=== PATIENT | female | born 1965 | race African-American/Black ===

== ENCOUNTER 2016-12-16 09:52 | Inpatient (IN) | payer MEDICAID ==
[~2016-12-16] VITALS: Ht 170.2 cm; Wt 79.9 kg
[~2016-12-16 09:52] MED LIST: BENZ100C PO; FAMO20TA7 PO; FOLI-17 PO; LEVO500T8 PO; LORA-446 PO; MULT-750 PO; ONDA4TAB10 PO; OXYC5TAB3 PO; SODI650T PO; SUCR1ORA2 PO; THIA100T10 PO; THIA100T6 PO; THIA50TA2 PO
[2016-12-16] MEDS ORDERED: SODIUM CHLORIDE FLUSH 10ML SYR IVF ONE (11:00)
[2016-12-16] MEDS ORDERED: SODIUM CHLORIDE 0.9% 1,000ML IVBOLUS ONE (11:00)
[2016-12-16] MEDS ORDERED: ONDANSETRON 2MG/ML, 2ML IVPush ONE (11:00)
[2016-12-16] MEDS ORDERED: MORPHINE SULFATE 4 MG/ML, 1ML IVPush PRN (11:00)
[2016-12-16] MEDS ORDERED: IBUPROFEN 200 MG TABLET PO ONE (11:00)
[2016-12-16] MEDS ORDERED: MORPHINE SULFATE 4 MG/ML, 1ML ONE (11:02)
[2016-12-16] MEDS ORDERED: ONDANSETRON 2MG/ML, 2ML ONE (11:03)
[2016-12-16] MEDS ORDERED: IBUPROFEN 200 MG TABLET ONE (11:03)
[2016-12-16 11:30] LABS: BLOOD UREA NITROGEN 11 mg/dL (7-18)
[2016-12-16 11:38] LABS: ASPARTATE AMINO TRANSFERASE 362 U/L (15-37)
[2016-12-16] MEDS ORDERED: LORazepam 2 MG/ML, 1ML ONE (12:40)
[2016-12-16] MEDS ORDERED: LORazepam 2 MG/ML, 1ML IVPush ONE (13:00)
[2016-12-16] MEDS ORDERED: CEFTRIAXONE PMX 1GM/50ML 50 ML IV ONE (13:30)
[2016-12-16] MEDS ORDERED: CEFTRIAXONE PMX 1GM/50ML 50 ML ONE (13:36)
[2016-12-16 14:57] VITALS: BP 118/79
[2016-12-16] MEDS: CEFTRIAXONE PMX 1GM/50ML 50 ML IV SCH (15:30)
[2016-12-16] MEDS ORDERED: ACETAMINOPHEN 325 MG TABLET PO PRN (15:30)
[2016-12-16] MEDS ORDERED: LABETALOL 5MG/ML, 20ML IV PRN (15:30)
[2016-12-16] MEDS ORDERED: ONDANSETRON 2MG/ML, 2ML IVP PRN (15:30)
[2016-12-16] MEDS ORDERED: DOCUSATE 100 MG CAPSULE PO PRN (15:30)
[2016-12-16] MEDS ORDERED: POLYETHYLENE GLYCOL 17 GM PACKET PO PRN (15:30)
[2016-12-16] MEDS ORDERED: BISACODYL 10 MG SUPP PR PRN (15:30)
[2016-12-16] MEDS: LORazepam 2 MG/ML, 1ML IVPush PRN ×2 (16:01→20:15)
[2016-12-16] MEDS: HYDROcodone/APAP 5/325 TABLET PO PRN ×2 (16:01→20:15)
[2016-12-16] MEDS: SODIUM CHLORIDE 0.9% 1,000 ML IV SCH (17:55)
[2016-12-16] MEDS: HEPARIN 5,000 UNITS/ML, 1ML SQ SCH (17:55)
[2016-12-16 19:05] VITALS: BP 114/78
[2016-12-17 01:55] VITALS: BP 103/73
[2016-12-17] MEDS: HEPARIN 5,000 UNITS/ML, 1ML SQ SCH ×3 (03:42→17:49)
[2016-12-17] MEDS: HYDROcodone/APAP 5/325 TABLET PO PRN ×5 (03:42→21:57)
[2016-12-17] MEDS: LORazepam 2 MG/ML, 1ML IVPush PRN (03:42)
[2016-12-17] MEDS: SODIUM CHLORIDE 0.9% 1,000 ML IV SCH ×3 (04:06→23:40)
[2016-12-17 04:59] LABS: ASPARTATE AMINO TRANSFERASE 330 U/L (15-37); BLOOD UREA NITROGEN 11 mg/dL (7-18)
[2016-12-17 06:53] VITALS: BP 99/69
[2016-12-17] MEDS: THIAMINE 100MG TABLET PO SCH (09:21)
[2016-12-17] MEDS: FOLIC ACID 1 MG TABLET PO SCH (09:21)
[2016-12-17] MEDS ORDERED: POTASSIUM CHLORIDE 20 MEQ TAB.ER.PRT PO ONE ×2 (09:30→16:30)
[2016-12-17 13:17] VITALS: BP 108/73
[2016-12-17] MEDS ORDERED: LABETALOL 5MG/ML, 20ML IV PRN (16:46)
[2016-12-17] MEDS ORDERED: MAGNESIUM SULFATE PMX 2GM/50ML 50 ML IV ONE (17:00)
[2016-12-17] MEDS ORDERED: SODIUM PHOSPHATE 30 MMOL in SODIUM CHLORIDE 0.9% 500 ML IV ONE (17:00)
[2016-12-17] MEDS: CEFTRIAXONE PMX 1GM/50ML 50 ML IV SCH (17:12)
[2016-12-17 19:49] VITALS: BP 105/71
[2016-12-18] MEDS: HEPARIN 5,000 UNITS/ML, 1ML SQ SCH ×2 (01:07→09:06)
[2016-12-18 03:56] VITALS: BP 108/68
[2016-12-18 05:39] LABS: ASPARTATE AMINO TRANSFERASE 229 U/L (15-37); BLOOD UREA NITROGEN 6 mg/dL (7-18)
[2016-12-18] MEDS: SODIUM CHLORIDE 0.9% 1,000 ML IV SCH ×3 (06:20→20:09)
[2016-12-18 07:28] VITALS: BP 96/62
[2016-12-18] MEDS: POTASSIUM CHLORIDE 20 MEQ TAB.ER.PRT PO SCH ×2 (09:05→17:07)
[2016-12-18] MEDS: SODIUM PHOSPHATE 20 MMOL in SODIUM CHLORIDE 0.9% 500 ML IV SCH ×2 (09:05→21:21)
[2016-12-18] MEDS: FOLIC ACID 1 MG TABLET PO SCH (09:05)
[2016-12-18] MEDS: THIAMINE 100MG TABLET PO SCH (09:06)
[2016-12-18 09:25] LABS: OCCBLD OBC PASS
[2016-12-18] MEDS: HYDROcodone/APAP 5/325 TABLET PO PRN ×3 (11:06→20:08)
[2016-12-18 12:31] VITALS: BP 96/64
[2016-12-18] MEDS: FLUCONAZOLE 100 MG TABLET PO SCH (13:01)
[2016-12-18] MEDS: metroNIDAZOLE 500 MG TABLET PO SCH ×2 (13:02→20:08)
[2016-12-18] MEDS: CEFTRIAXONE PMX 1GM/50ML 50 ML IV SCH (15:28)
[2016-12-18 21:17] VITALS: BP 104/67
[2016-12-19] MEDS: HYDROcodone/APAP 5/325 TABLET PO PRN ×5 (00:08→21:07)
[2016-12-19] MEDS: metroNIDAZOLE 500 MG TABLET PO SCH ×3 (05:05→21:07)
[2016-12-19 05:20] VITALS: BP 106/72
[2016-12-19 06:46] LABS: ASPARTATE AMINO TRANSFERASE 144 U/L (15-37); BLOOD UREA NITROGEN 2 mg/dL (7-18)
[2016-12-19 07:41] VITALS: BP 113/78
[2016-12-19] MEDS ORDERED: MAGNESIUM SULFATE PMX 2GM/50ML 50 ML IV ONE (08:00)
[2016-12-19] MEDS: ENOXAPARIN 40 MG/0.4 ML SQ SCH (09:04)
[2016-12-19] MEDS: FLUCONAZOLE 100 MG TABLET PO SCH (09:04)
[2016-12-19] MEDS: FOLIC ACID 1 MG TABLET PO SCH (09:04)
[2016-12-19] MEDS: THIAMINE 100MG TABLET PO SCH (09:04)
[2016-12-19 15:16] VITALS: BP 100/69
[2016-12-19] MEDS: CEFTRIAXONE PMX 1GM/50ML 50 ML IV SCH (15:57)
[2016-12-19] MEDS: SODIUM CHLORIDE 0.9% 1,000 ML IV SCH (17:00)
[2016-12-19 19:56] VITALS: BP 114/80
[2016-12-20 01:07] VITALS: BP 114/77
[2016-12-20] MEDS: HYDROcodone/APAP 5/325 TABLET PO PRN ×2 (01:15→05:16)
[2016-12-20] MEDS: metroNIDAZOLE 500 MG TABLET PO SCH (05:16)
[2016-12-20 07:34] VITALS: BP 101/70
[2016-12-20] MEDS ORDERED: METR500T PO (07:56)
[2016-12-20] MEDS: SODIUM CHLORIDE 0.9% 1,000 ML IV SCH (08:38)
[2016-12-20] MEDS: THIAMINE 100MG TABLET PO SCH (08:39)
[2016-12-20] MEDS: FLUCONAZOLE 100 MG TABLET PO SCH (08:39)
[2016-12-20] MEDS: FOLIC ACID 1 MG TABLET PO SCH (08:39)
[2016-12-20] MEDS: ENOXAPARIN 40 MG/0.4 ML SQ SCH (08:39)
[2016-12-20 08:58] LABS: ASPARTATE AMINO TRANSFERASE 96 U/L (15-37); BLOOD UREA NITROGEN 2 mg/dL (7-18)
== END 2016-12-20 12:56 | disposition home or self-care (01) | DRG 371 ==
LOC: ED 11:33 → EDIP 13:31 → 3NE 14:45
PROVIDERS: ADMIT Hospitalist; ATTEND Hospitalist
DX: A04.7 Enterocolitis due to Clostridium difficile (principal); E43 Unspecified severe protein-calorie malnutrition; N30.00 Acute cystitis without hematuria; I50.32 Chronic diastolic (congestive) heart failure; F10.239 Alcohol dependence with withdrawal, unspecified; F41.9 Anxiety disorder, unspecified; K74.60 Unspecified cirrhosis of liver; Z91.14 Patient's other noncompliance with medication regimen; Z90.710 Acquired absence of both cervix and uterus; K70.10 Alcoholic hepatitis without ascites; N20.0 Calculus of kidney; Z87.891 Personal history of nicotine dependence; E11.9 Type 2 diabetes mellitus without complications; E83.39 Other disorders of phosphorus metabolism; E87.6 Hypokalemia; E83.42 Hypomagnesemia; D53.9 Nutritional anemia, unspecified; Z68.27 Body mass index [BMI] 27.0-27.9, adult
CPT/HCPCS: 36415; 74176; 80053; 80061; 81001; 82247; 82248; 82272; 82607; 83010; 83615; 83690; 83735; 84100; 84443; 85025; 85379; 85610; 87040; 87086; 87324; 87493; 93005; 96365; 96366; 96375; J0696; J1644; J1650; J2405; J2060; J3475; J7030; J7040